=== PATIENT | female | born 1945 | race Caucasian/White ===

== ENCOUNTER 2018-11-12 11:34 | Emergency (ER) | payer OTHER ==
[~2018-11-12] VITALS: Ht 154.9 cm; Wt 76.2 kg
[2018-11-12] MEDS ORDERED: HYDROCHLOROTHIA50 MG (12:24)
[2018-11-12] MEDS ORDERED: TRAMADOL HCL100 M1 (12:25)
[2018-11-12] MEDS ORDERED: NEURONTIN300 MG PO (12:25)
[2018-11-12] MEDS ORDERED: HYDROXYCHLOROQ100 GM (12:27)
== END 2018-11-12 17:02 | disposition home or self-care (01) ==
LOC: ER 11:34
DX: M76.891 Other specified enthesopathies of right lower limb, excluding foot (principal)